=== PATIENT | male | born 1995 | race Caucasian/White ===

== ENCOUNTER 2018-01-23 15:16 | Outpatient (CLI) | payer BC ==
--- NOTE | 2018-01-23 15:42 | RAD ---
THREE VIEWS LEFT FOOT: Date: 01-23-18 History: Injured left foot playing soccer. Trauma. Difficulty walking on left foot. Tenderness around 2nd and 3rd metatarsals. FINDINGS: There is no fracture or dislocation seen. Lisfranc joint is normally aligned. No other osseous abnorm ality. IMPRESSION: No acute osseous abnormality left foot. POS: [facility]
== END 2018-01-23 15:17 | disposition home or self-care (01) ==
LOC: BICRAD 15:16
PROVIDERS: ATTEND Chiropractor
DX: S99.922A Unspecified injury of left foot, initial encounter (principal); R26.2 Difficulty in walking, not elsewhere classified; Y93.66 Activity, soccer